=== PATIENT | female | born 1970 | race African-American/Black ===

== ENCOUNTER 2017-11-16 22:02 | Emergency (ER) | payer MEDICAID ==
[~2017-11-16] VITALS: Ht 165.1 cm; Wt 63.0 kg
[~2017-11-16 22:02] MED LIST: LISI-604 PO
[2017-11-16 22:03] VITALS: BP 103/68
== END 2017-11-16 23:24 | disposition left against medical advice (07) ==
LOC: ER 22:09
DX: R07.89 Other chest pain (principal); I10 Essential (primary) hypertension; F17.210 Nicotine dependence, cigarettes, uncomplicated; Z82.49 Family history of ischemic heart disease and other diseases of the circulatory system
CPT/HCPCS: 93005; 99283; Z7610